=== PATIENT | male | born 1990 | race African-American/Black ===

== ENCOUNTER 2018-02-18 09:31 | Emergency (ER) | payer MEDICARE, MEDICAID ==
[~2018-02-18] VITALS: Ht 175.3 cm; Wt 73.0 kg
[~2018-02-18 09:31] MED LIST: ASPI-986 PO; HYDR-4133 PO; LISI-186 PO; METO-385 PO; NIFE30TA94 PO
[2018-02-18] MEDS ORDERED: KETOROLAC 60MG/2ML VIAL IM ONE (10:15)
[2018-02-18 12:10] VITALS: BP 161/74
== END 2018-02-18 12:30 | disposition home or self-care (01) ==
LOC: ER 09:31
DX: S39.012A Strain of muscle, fascia and tendon of lower back, initial encounter (principal); X50.0XXA Overexertion from strenuous movement or load, initial encounter; Y93.89 Activity, other specified; Y92.69 Other specified industrial and construction area as the place of occurrence of the external cause; Y99.0 Civilian activity done for income or pay; I12.0 Hypertensive chronic kidney disease with stage 5 chronic kidney disease or end stage renal disease; N18.6 End stage renal disease; Z99.2 Dependence on renal dialysis
CPT/HCPCS: 93005; 96372; 99283; J1885

== ENCOUNTER 2018-10-28 11:32 | Inpatient (IN) | payer MEDICARE, MEDICAID ==
[~2018-10-28] VITALS: Ht 170.2 cm; Wt 75.7 kg
[2018-10-28] MEDS ORDERED: NALOXONE HCL 0.4 MG/ML 1ML VIAL IV ONE (12:00)
[2018-10-28] MEDS ORDERED: LORAZEPAM 2MG/ML CPJ IM ONE ×2 (12:30→16:30)
[2018-10-28] MEDS ORDERED: HALOPERIDOL LACTATE 5MG/ML VIAL IM ONE ×2 (12:30→16:30)
[2018-10-28 14:06] LABS: CHLORIDE 94 mEq/L (98-107)
[2018-10-28 14:08] LABS: BASOPHILS % 0.4 % (0.0-2.0); EOSINOPHILS % 0.7 % (0.0-5.0); HEMATOCRIT. 33.8 % (42.0-52.0); HEMOGLOBIN. 11.5 g/dL (14.0-18.0); LYMPHOCYTES % 13.2 % (20.0-50.0); MEAN CORPUSCULAR HEMOGLOBIN 32.4 pg (28.0-32.0); MEAN CORPUSCULAR VOLUME 95.1 fL (80.0-94.0); MEAN PLATELET VOLUME 10.2 fl (7.4-10.4); MONOCYTES % 3.6 % (2.0-8.0); NEUTROPHILS % 82.1 % (40.0-76.0); PLATELET 156 x1000/uL (130-400); RED BLOOD CELL COUNT 3.56 mill/uL (4.7-6.1); RED CELL DISTRIBUTION WIDTH 16.2 % (11.6-14.6)
[2018-10-28 14:09] LABS: PROTHROMBIN TIME 10.6 sec (9.6-11.0)
[2018-10-28 14:11] LABS: ETHANOL BLOOD < 10 mg/dL
[2018-10-28] MEDS ORDERED: ACETAMINOPHEN 325MG TABLET PO PRN (20:15)
[2018-10-28] MEDS ORDERED: MAGNESIUM/ALUMINUM HYDROXIDE/SIMETHICONE 30ML UDC PO PRN (20:15)
[2018-10-28] MEDS ORDERED: DOCUSATE SODIUM 100MG CAPSULE PO PRN (20:15)
[2018-10-28] MEDS ORDERED: IPRATROPIUM/ALBUTEROL 0.5-3(2.5)MG/3ML NEB HHN PRN (20:15)
[2018-10-28] MEDS ORDERED: LORAZEPAM 2MG/ML CPJ IV PRN (20:15)
[2018-10-28] MEDS ORDERED: MORPHINE SULFATE 2 MG/ML CPJ (NOT FOR IM USE) IV PRN (20:15)
[2018-10-28] MEDS ORDERED: DEXTROSE 50% WATER 50ML SYRINGE IV PRN (20:15)
[2018-10-28] MEDS ORDERED: DIPHENHYDRAMINE 50MG/ML VIAL IV PRN (20:15)
[2018-10-28] MEDS ORDERED: ONDANSETRON HCL 4MG/2ML INJ IV PRN (20:15)
[2018-10-28] MEDS ORDERED: CLONIDINE 0.1MG TABLET PO PRN (20:15)
[2018-10-28] MEDS ORDERED: HYDRALAZINE 20MG/ML VIAL IV PRN (20:15)
[2018-10-28] MEDS ORDERED: GUAIFENESIN 200MG/10ML SUGAR FREE UDC PO PRN (20:15)
[2018-10-28] MEDS ORDERED: HYDROCODONE/ACETAMINOPHEN 10/325MG TABLET PO PRN (20:15)
[2018-10-28 23:00] VITALS: BP 126/65
[2018-10-28] MEDS ORDERED: ENOXAPARIN 30MG/0.3ML SYR SUBCUT SCH (23:00)
[2018-10-28] MEDS: BLOOD SUGAR DIAGNOSTIC STRIP TEST SCH (23:09)
[2018-10-28] MEDS: INSULIN LISPRO 100 UNITS/ML SUBCUT SCH (23:09)
[2018-10-28] MEDS: SODIUM CHLORIDE 0.9% INJ 3ML FLUSH IVF SCH (23:15)
[2018-10-28 23:50] VITALS: BP 126/70
[2018-10-29 00:11] LABS: CREATINE KINASE MB FRACTION 1.2 ng/mL (0.5-3.6)
[2018-10-29 04:00] VITALS: BP 130/68
[2018-10-29] MEDS: BLOOD SUGAR DIAGNOSTIC STRIP TEST SCH ×2 (06:30→11:30)
[2018-10-29] MEDS: INSULIN LISPRO 100 UNITS/ML SUBCUT SCH ×2 (06:31→11:30)
[2018-10-29] MEDS: SODIUM CHLORIDE 0.9% INJ 3ML FLUSH IVF SCH (06:32)
[2018-10-29 07:14] LABS: BASOPHILS % 0.4 % (0.0-2.0); EOSINOPHILS % 0.7 % (0.0-5.0); HEMATOCRIT. 31.9 % (42.0-52.0); HEMOGLOBIN. 10.9 g/dL (14.0-18.0); LYMPHOCYTES % 17.4 % (20.0-50.0); MEAN CORPUSCULAR HEMOGLOBIN 31.9 pg (28.0-32.0); MEAN CORPUSCULAR VOLUME 93.4 fL (80.0-94.0); MONOCYTES % 5.7 % (2.0-8.0); NEUTROPHILS % 75.8 % (40.0-76.0); PLATELET 153 x1000/uL (130-400); RED BLOOD CELL COUNT 3.41 mill/uL (4.7-6.1); RED CELL DISTRIBUTION WIDTH 16.3 % (11.6-14.6)
[2018-10-29 07:20] LABS: CHLORIDE 97 mEq/L (98-107)
[2018-10-29 07:29] LABS: CREATINE KINASE MB FRACTION < 1.0 ng/mL (0.5-3.6); LDL CHOLESTEROL 63 mg/dL (5-100)
[2018-10-29 07:31] LABS: HDL CHOLESTEROL 51 mg/dL (40-59); T4 FREE 0.91 ng/dL (0.76-1.46)
[2018-10-29 07:43] LABS: CREATINE KINASE 1136 IU/L (39-308)
[2018-10-29 08:00] VITALS: BP 130/68
[2018-10-29 12:00] VITALS: BP 139/79
== END 2018-10-29 14:20 | disposition left against medical advice (07) | DRG 70 ==
LOC: ER 11:32 → EDBEDREQ 16:17 → 8WST 17:58 → EDBEDREQ 18:00 → ENRESERV 20:33
PROVIDERS: ADMIT Internal Medicine; ATTEND Internal Medicine
DX: G93.40 Encephalopathy, unspecified (principal); N18.6 End stage renal disease; I13.11 Hypertensive heart and chronic kidney disease without heart failure, with stage 5 chronic kidney disease, or end stage renal disease; D64.9 Anemia, unspecified; R55 Syncope and collapse; D72.819 Decreased white blood cell count, unspecified; E11.22 Type 2 diabetes mellitus with diabetic chronic kidney disease; Z99.2 Dependence on renal dialysis; Z79.899 Other long term (current) drug therapy
CPT/HCPCS: 36415; 71045; 80061; 80307; 80320; 80329; 82140; 82550; 82553; 82962; 83880; 84439; 84443; 84484; 93005; 93970; 99285; J1630; J2060; J2310; G0480